=== PATIENT | female | born 1965 | race Caucasian/White ===

== ENCOUNTER 2017-07-04 18:13 | Emergency (ER) | payer BC, OTHER ==
--- NOTE | 2017-07-04 18:58 | EDM.PDOC ---
ED HPI GENERAL MEDICAL PROBLEM - General Chief Complaint: Lower Extremity Injury/Pain Stated Complaint: RIGHT LEG PAIN TIGHTNESS IN THE KNEE Time Seen by Provider: 07/04/17 18:34 Source of Information: Reports: Patient, RN Notes Reviewed - History of Present Illness INITIAL COMMENTS - FREE TEXT/NARRATIVE: 51 year old female with R knee, R distal femur and proximal lower leg pain. Worse with certain types of motion. mild swelling R lower leg. Is on her feet a lot with her working 2 jobs both on her feet alot. No known injury. Right Leg Pain Score (Numeric/FACES): 2 - Related Data Allergies Allergy/AdvReac Type Severity Reaction Status Date / Time No Known Allergies Allergy Verified 07/04/17 18:23 Home Meds: Home Meds . [No Known Home Meds] 07/04/17 [History] Past Medical History - Past Surgical History Female Surgical History: Reports: Hysterectomy Musculoskeletal Surgical History: Reports: Other (See Below) Other Musculoskeletal Surgeries/Procedures:: broken femur Social & Family History - Tobacco Use Smoking Status *Q: Former Smoker Used Tobacco, but Quit: Yes Month/Year Tobacco Last Used: 4 years - Caffeine Use Caffeine Use: Reports: Coffee, Soda - Recreational Drug Use Recreational Drug Use: No Review of Systems - Review of Systems Review Of Systems: See Below Constitutional: Denies: Chills, Fever Mouth/Throat: Reports: No Symptoms Respiratory: Denies: Shortness of Breath, Pleuritic Chest Pain Cardiovascular: Denies: Chest Pain GI/Abdominal: Denies: Abdominal Pain Musculoskeletal: Reports: Joint Pain (R knee) Skin: Reports: No Symptoms. Denies: Rash, Erythema Neurological: Reports: No Symptoms ED EXAM, GENERAL - Physical Exam Exam: See Below General Appearance: Alert, No Apparent Distress Throat/Mouth: Normal Inspection Head: Atraumatic Neck: Supple, Full Range of Motion Respiratory/Chest: No Respiratory Distress, Lungs Clear, Normal Breath Sounds Cardiovascular: Regular Rate, Rhythm Back Exam: No: CVA Tenderness (L), CVA Tenderness (R) Extremities: Normal Inspection, Normal Range of Motion, Leg Pain (very mild tenderness distal thigh above R lateral knee), Other (there is mild diffuse swelling of R lower leg, nontender posteriorly). No: Joint Swelling, Increased Warmth, Redness Neurological: Alert, Oriented, No Motor/Sensory Deficits Skin Exam: Warm, Dry, Normal Color Course - Vital Signs Last Recorded V/S: Last Vital Signs Temp 98 F 07/04/17 18:21 Pulse 77 07/04/17 18:21 Resp 18 07/04/17 18:21 BP 119/87 07/04/17 18:21 Pulse Ox 96 07/04/17 18:21 - Re-Assessments/Exams Free Text/Narrative Re-Assessment/Exam: 07/04/17 20:14 X rays of knee are nl, US of lower extrem neg for DVT. Departure - Departure Time of Disposition: 20:15 Disposition: Home, Self-Care 01 Condition: Fair Clinical Impression: Leg pain Qualifiers: Laterality: right Qualified Code(s): M79.604 - Pain in right leg - Discharge Information Instructions: Muscle Strain, [id number] Referrals: PCP,None [Primary Care Provider] - Forms: ED Department Discharge, ED Return to Work/School Form Additional Instructions: rest and elevate knee and leg as much as possible, advil or ibuprofen 600mg 3 times daily until pain resolving, follow up clinic as needed, return to ED as needed.
--- NOTE | 2017-07-04 20:20 | US ---
Right lower extremity deep venous ultrasound: Duplex and color flow imaging was obtained of the right common femoral, proximal greater saphenous, superficial femoral, popliteal, posterior tibial and peroneal veins. Left common femoral vein was also evaluated. 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 Normal phasic flow, augmentation and compression is otherwise seen. Impression: 1. Soft tissue material along the wall of the superficial femoral vein raising the question of recannulized old deep venous thrombosis. 2. No findings of acute venous thrombosis is seen within right lower extremity or left common femoral vein. Diagnostic code #2
--- NOTE | 2017-07-05 07:55 | CR ---
Right knee: Four views of the right knee were obtained. Comparison: No previous knee exam. Mild medial joint space narrowing is seen. Minimal osteophyte is noted off the lateral tibial margin. No joint effusion is seen. No acute fracture or other abnormality is identified. Impression: 1. Slight degenerative change as described above. 2. Nothing acute is appreciated on right knee exam. Diagnostic code #2
== END 2017-07-04 20:20 | disposition home or self-care (01) ==
LOC: JD.ED 18:13
DX: M79.604 Pain in right leg (principal); Z90.710 Acquired absence of both cervix and uterus; Z87.891 Personal history of nicotine dependence
CPT/HCPCS: 73564-26-RT; 73564-RT; 93971-26-RT; 93971-RT; 99284-25